=== PATIENT | female | born 1985 | race Caucasian/White ===

== ENCOUNTER → 2021-09-05 | Outpatient (CLI) | payer BC, OTHER ==
[~2021-09-05] MED LIST: CASIRIVIMAB/IMDEVIMAB (EUA) 1,200 MG in SODIUM CHLORIDE 0.9% 100 ML IVPB NR; SODIUM CHLORIDE 0.9% 50 ML IVPB NR; SODIUM CHLORIDE 0.9% 500 ML 500 ML in EMPTY BAG 1 BAG IV PRN
[2021-09-05 08:17] VITALS: BP 119/76; PULSE 102; RESP 16; TEMP 98.8
== END ==
LOC: PROCWHC3 07:14
PROVIDERS: ATTEND Family Medicine
DX: U07.1 COVID-19 (principal); E66.9 Obesity, unspecified; Z68.41 Body mass index [BMI] 40.0-44.9, adult; Z88.2 Allergy status to sulfonamides
CPT/HCPCS: 96360; Q0243; M0243; 96361

== ENCOUNTER → 2024-01-12 | Outpatient (CLI) | payer BC ==
[2024-01-12 10:25] LABS: Basophils # (A) 0.1 k/uL (0-0.2); Basophils % (A) 1 %; Eosinophils # (A) 0.2 k/uL (0-0.7); Eosinophils % (A) 2 %; HCT 49.1 % (34.0-46.0); HGB 15.8 gm/dL (11.4-16.0); Lymphocytes % (A) 23 %; MCHC 32.2 g/dL (31.0-37.0); MCV 93.3 fL (80.0-100.0); Mean Platelet Volume 8.6; Monocytes # (A) 0.5 k/uL (0-1.0); Monocytes % (A) 6 %; Neutrophils # (A) 5.8 k/uL (1.3-7.7); Neutrophils % (A) 67 %; Platelet Count 317 k/uL (150-450); RBC 5.26 m/uL (3.80-5.40); RDW 13.2 % (11.5-15.5); WBC 8.7 k/uL (3.8-10.6)
[2024-01-12 10:35] LABS: ALT 51 U/L (4-34); AST 26 U/L (14-36); African American GFR (CKD) >90 (>60 ml/min/1.73 sqM); Albumin 3.5 g/dL (3.5-5.0); Albumin/Globulin Ratio 1.1; Alkaline Phosphatase 47 U/L (38-126); Anion Gap 8 mmol/L; Blood Urea Nitrogen 10 mg/dL (7-17); Calcium 8.8 mg/dL (8.4-10.2); Carbon Dioxide 22 mmol/L (22-30); Chloride 110 mmol/L (98-107); Globulin 3.1 g/dL; Glucose 89 mg/dL (74-99); Magnesium 2.2 mg/dL (1.6-2.3); Non-African American GFR(CKD) >90 (>60 ml/min/1.73 sqM); Potassium 3.9 mmol/L (3.5-5.1); Sodium 140 mmol/L (137-145); Total Bilirubin 0.6 mg/dL (0.2-1.3); Total Protein 6.6 g/dL (6.3-8.2)
[2024-01-12 11:54] LABS: T4, Free (Free Thyroxine) 1.31 ng/dL (0.78-2.19)
[2024-01-12 20:20] LABS: % Iron Saturation 22.06 (12.00-45.00); Iron 62 UG/DL (50-170); Total Iron Binding Capacity 281 UG/DL (228-460)
== END | disposition home or self-care (01) ==
LOC: LABWHC1 09:34
PROVIDERS: ATTEND Family Medicine
DX: R42 Dizziness and giddiness (principal)
CPT/HCPCS: 36415; 80053; 82306; 82607; 82728; 82746; 83540; 83550; 83735; 84439; 84443; 85025

== ENCOUNTER → 2025-01-24 | Outpatient (CLI) | payer BC ==
--- NOTE | 2025-01-24 09:00 | US ---
EXAMINATION TYPE: US abdomen complete DATE OF EXAM: 01/24/2025 COMPARISON: NONE CLINICAL INDICATION: Female, 39 years old with history of R10.9 UNSPECIFIED ABDOMINAL PAIN; RUQ pain x 1 week TECHNIQUE: Grayscale and color Doppler imaging of the abdomen was performed. FINDINGS: EXAM MEASUREMENTS: Liver Length: 12.6 cm Gallbladder Wall: 0.2 cm CBD: 0.3 cm Spleen: 9.3 cm Right Kidney: 9.6 x 4.7 x 6.5 cm Left Kidney: 10.1 x 5.2 x 5.4 cm Pancreas: obscured by overlying midline bowel gas Liver: wnl Gallbladder: cholelithiasis, borderline hydropic Evidence for sonographic Guillory's sign: yes CBD: visualized portions wnl Spleen: wnl Right Kidney: wnl Left Kidney: wnl Upper IVC: wnl Abd Aorta: proximal portion obscured by overlying midline bowel gas, mid and distal portions wnl The liver is homogenous. The intrahepatic portion of the IVC and visualized mid and distal abdominal aorta are within normal limits. Internal gallstones are present. No pericholecystic fluid or abnorma l wall thickening. Common bile duct is unremarkable. The visualized portions of the pancreas are jim ogenous. The spleen is unremarkable. Kidneys are symmetric and free of hydronephrosis. No renal le sions are seen. IMPRESSION: Gallstones with equivocal findings for acute cholecystitis. Consider HIDA scan follow-up to further evaluate. [facility], , 01/24/2025 8:58 AM
== END | disposition home or self-care (01) ==
LOC: RADUSWWP 08:21
PROVIDERS: ATTEND Family Medicine
DX: K80.00 Calculus of gallbladder with acute cholecystitis without obstruction (principal)
CPT/HCPCS: 76700

== ENCOUNTER → 2025-01-28 | Outpatient (CLI) | payer BC ==
--- NOTE | 2025-01-28 10:14 | NM ---
EXAMINATION TYPE: NM hepatobiliary w EF DATE OF EXAM: 01/28/2025 COMPARISON: Ultrasound abdomen 4 days earlier CLINICAL INDICATION: Female, 39 years old with history of R10.13 epigastric and right upper quadrant pain; history of gallstones with diminished appetite. TECHNIQUE: After the intravenous administration of 4.7 mCi Tc 99m Mebrofenin hepatobiliary scintigrap hy is performed. Immediate images post injection. FINDINGS: There is satisfactory initial accumulation of tracer by the liver. The gallbladder is visualized wit hin 40 minutes. The small bowel activity is noted within 25 minutes. At one hour 8 ounces of oral e nsure plus is given to mimic CCK and gallbladder ejection fraction is calculated at 80 %, in the norm al range. Therefore there is no scintigraphic evidence of cystic or common bile duct obstruction to suggest acute cholecystitis or gallbladder hypokinesia. IMPRESSION: Exam is within normal limits. [facility], , 01/28/2025 10:12 AM
== END | disposition home or self-care (01) ==
LOC: RADNMMAIN 06:54
PROVIDERS: ATTEND Family Medicine
DX: R10.13 Epigastric pain (principal)
CPT/HCPCS: 78226; A9537